=== PATIENT | male | born 1950 | race Caucasian/White ===

== ENCOUNTER 2017-02-13 06:00 | Observation (INO) | payer MEDICARE ==
[~2017-02-13] VITALS: Ht 182.9 cm; Wt 105.5 kg
[~2017-02-13 06:00] MED LIST: ALPR0.5T3 PO; ATEN25TA PO; FAMO1TAB30 PO; PRAV10TA PO; TEMA15CA PO; TERA5CAP3 PO; VITA2000 PO
[2017-02-13] MEDS ORDERED: POVIDONE IODINE 5% (ANTISEPSIS KIT) 4 APPLICATIONS EACH NARE PRN (06:30)
[2017-02-13] MEDS ORDERED: SODIUM CHLORID 0.9% 500 ML IV PRN (06:30)
[2017-02-13] MEDS ORDERED: SODIUM CHLOR 0.9% 1000 ML INJ 1,000 ML IV SCH (06:30)
[2017-02-13] MEDS ORDERED: LACTATED RINGER'S 1000 ML IV PRN (06:30)
[2017-02-13] MEDS ORDERED: METOPROLOL TARTRATE 25 MG TAB PO PRN (06:30)
[2017-02-13] MEDS ORDERED: VANCOMYCIN HCL 1000 MG ON-CALL/NS 250 ML IV SCH ×2 (06:30)
[2017-02-13] MEDS ORDERED: CHLORHEXIDINE GLUCONATE 2 % 1 PACK (2 CLOTHS) TOPICAL PRN (06:30)
[2017-02-13] MEDS ORDERED: BUPIVACAINE/EPINEPHRINE 0.5% 50 ML VIAL ONE (07:29)
[2017-02-13] MEDS ORDERED: VANCOMYCIN HCL 1000 MG VIAL ONE ×2 (07:29→09:50)
[2017-02-13] MEDS ORDERED: GELFOAM SIZE 100 ONE (07:29)
[2017-02-13] MEDS ORDERED: THROMBIN (TOPICAL) 5,000 UNIT VIAL ONE (07:29)
[2017-02-13] MEDS ORDERED: SODIUM CHLOR 0.9% 250 ML INJ 0 ML ONE (07:30)
[2017-02-13] MEDS ORDERED: ACETAMINOPHEN 1000 MG/100 ML 100 ML IV ONE (07:49)
[2017-02-13] MEDS ORDERED: PROPOFOL 500 MG/50 ML INJ 100 ML ONE (07:49)
[2017-02-13] MEDS ORDERED: DEXAMETHASONE SOD PHOS 4 MG/ML VIAL ONE (08:25)
[2017-02-13] MEDS ORDERED: ONDANSETRON HCL 4 MG/2 ML VIAL IV ONE (12:00)
[2017-02-13] MEDS ORDERED: ACETAMINOPHEN/HYDROcodone 325 MG/10 MG TAB PO PRN (12:00)
[2017-02-13] MEDS ORDERED: ROCURONIUM INJ 50 MG/5 ML SYRINGE IV PUSH ONE (12:00)
[2017-02-13] MEDS ORDERED: LABETALOL HCL 100 MG/20 ML VIAL IV ONE (12:00)
[2017-02-13] MEDS ORDERED: DEXAMETHASONE SOD PHOS 4 MG/ML VIAL IV ONE (12:00)
[2017-02-13] MEDS ORDERED: NEOSTIGMINE 5 MG/5 ML SYRINGE IV PUSH ONE (12:00)
[2017-02-13] MEDS ORDERED: ACETAMINOPHEN 325 MG TAB PO PRN (12:00)
[2017-02-13] MEDS ORDERED: NORMOSOL R INJ 2,000 ML IV ONE (12:00)
[2017-02-13] MEDS ORDERED: GLYCOPYRROLATE 1 MG/5 ML SYRINGE IV PUSH ONE (12:00)
[2017-02-13] MEDS ORDERED: ALPRAZolam 0.5 MG TAB PO PRN (12:00)
[2017-02-13] MEDS ORDERED: LIDOCAINE HCL 1% PF 5 ML SYRINGE OTHER ONE (12:00)
[2017-02-13] MEDS ORDERED: CYCLOBENZAPRINE HCL 10 MG TAB PO PRN (12:00)
[2017-02-13] MEDS ORDERED: ePHEDrine/NS 25 MG/5 ML SYRINGE IV ONE (12:00)
[2017-02-13] MEDS ORDERED: cloNIDine HCL 0.1 MG TAB PO PRN (12:00)
[2017-02-13] MEDS ORDERED: MAGNESIUM HYDROXIDE SUSP 30 ML CUP PO PRN (12:00)
[2017-02-13] MEDS ORDERED: ONDANSETRON HCL 4 MG/2 ML VIAL IV PUSH PRN (12:00)
[2017-02-13] MEDS ORDERED: TEMAZEPAM 15 MG CAP PO PRN (12:00)
[2017-02-13] MEDS ORDERED: RESP: ALBUTEROL 2.5 MG/3 ML NEB (PRN) NEB (12:00)
[2017-02-13] MEDS ORDERED: SENNOSIDES 8.6 MG TAB PO PRN (12:00)
[2017-02-13] MEDS ORDERED: PROMETHAZINE INJ 25 MG/ML VIAL IM PRN (12:00)
[2017-02-13] MEDS ORDERED: PROPOFOL 200 MG/20 ML AMP IV ONE (12:00)
[2017-02-13] MEDS ORDERED: SODIUM CHLORIDE 0.9% FLUSH 10 ML FLUSH IV FLUSH PRN (12:00)
[2017-02-13] MEDS ORDERED: METOPROLOL TARTRATE 5 MG/5 ML VIAL IV PUSH ONE (12:00)
[2017-02-13] MEDS ORDERED: LACTULOSE SYRUP 20 GM/30 ML CUP PO PRN (12:00)
[2017-02-13] MEDS ORDERED: ALUMINUM/MAGNESIUM/SIMETH 30 ML CUP PO PRN (12:00)
[2017-02-13] MEDS ORDERED: LACTATED RINGER'S 1000 ML INJ 1,000 ML IV ONE (12:00)
[2017-02-13] MEDS ORDERED: BISACODYL 10 MG SUPP RECTAL PRN (12:00)
--- NOTE | 2017-02-13 12:11 | PD.OP ---
MD Edis Shanks MD Operative Report Date of Surgery: Feb 13, 2017 Preoperative Diagnosis: Intractable neck pain with radiculopathy; severe C5-6 disc degeneration with associated disc osteophyte complex and spinal and foraminal stenosis Postoperative Diagnosis: Same Procedure: Anterior cervical C5-6 microdiscectomy with interbody fusion; anterior C5-6 cervical plate placement; C5-6 interbody cage placement; microsurgical technique Anesthesia: Gen. endotracheal by Horace momin Surgeon: Lucas Washburn M.D. Ethylbenzene Cracking Supervisor(s): Rebeka Longoria Operation and Findings: Following administration of general endotracheal anesthesia, the patient received a gram of vancomycin and Decadron 10 mg intravenously. Sequential compression devices were placed in supine position on a Kurt table and all pressure points adequately padded. The head secured in a donut and anterior cervical region then shaved and prepped with Chloraprep and sterilely draped with Ioban along with the usual sterile draping. A transverse skin incision on the left side of the neck was then made after infiltrating the skin with 0.5% Marcaine with epinephrine solution extending down through the platysma. At the anterior border of the sternocleidomastoid further dissection was undertaken developing a plane between the carotid sheath laterally and the trachea esophagus medially. The prevertebral fascia was exposed and dissected out. The medial attachments of the longus colli muscles were detached and a self- retaining retractor used for exposure. The C5-6 disc space was localized with a marking the disc space and using lateral fluoroscopy. Stopover distraction screws 14 mm length were placed one in the C5 and one in the C6 body interbody distraction and exposure. There was significant disc degeneration with disc height collapse and anterior osteophytes noted at the C5-7level and the osteophytes were resected with a Leksell and annulus incised with a 15 blade and further dissection undertaken using microtechnique with microscope magnification. Diskectomy was undertaken with pituitaries and the endplates were also decorticated with curettes and drill bit. And more posteriorly there was disk osteophyte complex compressing the thecal sac along with a significant uncovertebral joint hypertrophy with foraminal stenosis which more prominent on the left side and was decompressed along with removal of the posterior longitudinal ligament. The foramen was decompressed bilaterally using a Kerrison 's and palpation with a nerve hook, the exiting nerve roots were felt to be free. The area was then copiously irrigated. I then placed a Peek cage packed with local autograft bone at the C5-6 interspace under fluoroscopy guidance. Stopover distraction pins were removed and the holes plugged with Gelfoam for hemostasis. In order to facilitate the fusion and provide stabilization, a Precision spine cervical uni-plate was then placed with a 14 mm variable angle screw in the C5 body and a 14 mm fixed angle screw in the C6 body. The plate screw locking mechanism was then engaged. AP and lateral fluoroscopy confirmed good placement of the construct and the retractor was then removed. Muscular bleeding points were cauterized with bipolar cautery and Gelfoam was then also used for hemostasis which was removed. The platysma was then approximated using 3-0 Vicryl interrupted stitches and 3-0 Vicryl subcuticular stitch also placed in an interrupted fashion, and final skin closure was with Mastisol and Steri- Strips. Sterile dressing was then applied. The patient was then extubated and taken to the recovery room. There are no intraoperative complications and all sponge and needle counts were correct at the end of procedure. Estimated blood loss was about 50 cc. The patient did undergo intraoperative neurologic monitoring which remained stable throughout the surgery. Lucas Washburn MD Feb 13, 2017 12:11
[2017-02-13] MEDS ORDERED: hydrALAZINE HCL 20 MG/ML VIAL ONE (12:15)
[2017-02-13] MEDS ORDERED: *morphine SULFATE 4 MG/ML PERIprocedure ONLY ONE (12:26)
[2017-02-13] MEDS ORDERED: MORPHINE SULFATE 2 MG/ML INJ IV PUSH PRN (13:15)
--- NOTE | 2017-02-13 13:25 | RADRPT ---
EXAM DATE/TIME: 02/13/2017 08:46 [facility] COMPARISON: No previous studies available for comparison. INDICATIONS : Herniated disk, fusion. MEDICAL HISTORY : None. SURGICAL HISTORY : None. ENCOUNTER: Initial ACUITY: 1 day PAIN SCORE: Non-responsive. LOCATION: Cervical spine FINDINGS: AP and lateral views of the cervical spine were obtained and demonstrate the patient status post ante rior fusion at the C5-6 level with anterior screw-plate fixation device. Metallic markers are noted i n the interspace. There is poor bony detail on the lateral views. CONCLUSION: Status post anterior fusion. Simon Chvaira MD on February 13, 2017 at 13:13 Board Certified Radiologist. This report was verified electronically.
[2017-02-13] MEDS: NS + KCL 20 MEQ INJ 1,000 ML IV SCH (13:29)
[2017-02-13 14:10] VITALS: PULSE 78
[2017-02-13 14:35] VITALS: BP 152/86; PULSE 72; RESP 18; TEMP 97.6; O2SAT 93
[2017-02-13] MEDS: ACETAMINOPHEN/HYDROcodone 325 MG/10 MG TAB PO PRN ×2 (15:29→20:27)
[2017-02-13] MEDS: MENTHOL LOZENGE BUCCAL PRN ×2 (15:29→20:27)
[2017-02-13] MEDS: DEXAMETHASONE SOD PHOS 4 MG/ML VIAL IV PUSH SCH ×2 (15:30→22:21)
[2017-02-13 16:32] VITALS: BP 176/99; PULSE 85; RESP 18; TEMP 97.5; O2SAT 94
[2017-02-13] MEDS: ATENOLOL 25 MG TAB PO SCH (20:25)
[2017-02-13] MEDS: TERAZOSIN HCL 5 MG CAP PO SCH (20:26)
[2017-02-13] MEDS: DOCUSATE SODIUM 50 MG/SENNA 8.6 MG TAB PO SCH (20:26)
[2017-02-13] MEDS: FAMOTIDINE 20 MG TAB PO SCH (20:26)
[2017-02-13 20:30] VITALS: BP 175/114; PULSE 90; RESP 18; TEMP 97.6; O2SAT 94
[2017-02-13 21:17] VITALS: O2SAT 94
[2017-02-13 22:08] VITALS: BP 167/91; PULSE 92
[2017-02-13] MEDS: SODIUM CHLORIDE 0.9% FLUSH 10 ML FLUSH IV FLUSH SCH (22:34)
[2017-02-14] VITALS (7 sets, daily range): BP systolic 154–180; BP diastolic 87–99; PULSE 62–94; RESP 18–19; TEMP 97.6–98.5; O2SAT 94–95
[2017-02-14] MEDS: ACETAMINOPHEN/HYDROcodone 325 MG/10 MG TAB PO PRN ×2 (01:24→05:30)
[2017-02-14] MEDS: NS + KCL 20 MEQ INJ 1,000 ML IV SCH ×2 (01:25→09:00)
[2017-02-14] MEDS: DEXAMETHASONE SOD PHOS 4 MG/ML VIAL IV PUSH SCH (03:35)
[2017-02-14] MEDS: MENTHOL LOZENGE BUCCAL PRN (05:30)
[2017-02-14] MEDS ORDERED: PRAVASTATIN SOD 10 MG TAB PO SCH (09:00)
[2017-02-14] MEDS ORDERED: CHOLECALCIFEROL (VIT D3) 1000 UNIT TAB PO SCH (09:00)
[2017-02-14] MEDS: SODIUM CHLORIDE 0.9% FLUSH 10 ML FLUSH IV FLUSH SCH (09:00)
[2017-02-14] MEDS ORDERED: PNEUMOCOCCAL POLYVALENT INJ 25 MCG/0.5 ML SYR IM ONE (10:00)
[2017-02-14] MEDS ORDERED: INFLUENZA VIRUS VACCINE (QUADRIVALENT) 0.5 ML SYR IM ONE (10:00)
[2017-02-14] MEDS: TERAZOSIN HCL 5 MG CAP PO SCH (10:14)
[2017-02-14] MEDS: ATENOLOL 25 MG TAB PO SCH (10:15)
[2017-02-14] MEDS: DOCUSATE SODIUM 50 MG/SENNA 8.6 MG TAB PO SCH (10:17)
[2017-02-14] MEDS: FAMOTIDINE 20 MG TAB PO SCH (10:17)
--- NOTE | 2017-02-14 10:22 | HHI.NSPN ---
History Chief Complaint: Mild incisional discomfort. Pt anxious personality. Interval History 02/14/17: Pt states he is doing well. He underwent a C5/C6 ACF on 02/13/17. No radiculopathy in UEs. Mild incisional discomfort. Mild throat discomfort. Pt states he is getting oob and ambulating to bathroom on his own. Review of Systems General: Negative for: fever, chills, insomnia Respiratory: Negative for: shortness of breath, cough, sputum Cardiovascular: Negative for: chest pain Gastrointestinal: Negative for: nausea, vomitting, diarrhea, constipation Exam Results Vital Signs Date Time Temp Pulse Resp B/P (MAP) Pulse Ox O2 Delivery O2 Flow Rate FiO2 02/14/17 08:00 97.7 80 19 173/87 (115) 95 02/13/17 21:17 21 02/13/17 14:00 Nasal Cannula 2 Intake and Output 02/14/17 02/14/17 02/15/17 08:00 16:00 00:00 Intake Total 240 ml Output Total 1100 ml 800 ml Balance -860 ml -800 ml Physical Examination General: Pt resting comfortably in bed. He has an anxious personality. Resp: CTA bilaterally. Heart: NSR no murmurs Abd: Soft positive bs Skin: Incision clean and dry. New bandage placed. Muscle: Moves all 4 extremities with 5/5 strength. Ambulating independently to bathroom. Neuro: Pt awake and alert. Follows commands well. Speech clear and appropriate. Pupils equal. Lab, Micro, Other Results Last Impressions Cervical Spine X-Ray 02/13/17 0000 Signed Impressions: Service Date/Time: Monday, February 13, 2017 08:46 - CONCLUSION: Status post anterior fusion. Simon Chavira MD 02/14/17 02/14/17 02/15/17 15:00 23:00 07:00 Output Total 800 ml Balance -800 ml Output Urine Total 800 ml Medical Decision Making Impression and Plan A: 66 y/o M s/p C5/C6 anterior cervical fusion. Pt doing well ambulating on his own to bathroom. He is requesting discharge home. P: Discharge pt home. Discussed incision care. Pt will keep dry in shower with waterproof bandage. Discussed restrictions of no pushing, pulling, lifting, more than 5 pounds. Pt can ambulate to his comfort. Massimo Joiner Feb 14, 2017 10:22 am
[2017-02-14] MEDS ORDERED: CYCL10TA PO (10:34)
[2017-02-28] MEDS ORDERED: CYCL10TA PO (16:15)
== END 2017-02-14 12:30 | disposition home or self-care (01) ==
LOC: HSDC 06:00 → HSDI 12:03 → N05A 14:10
PROVIDERS: ADMIT Neurological Surgery; ATTEND Neurological Surgery
DX: M48.02 Spinal stenosis, cervical region (principal); M50.122 Cervical disc disorder at C5-C6 level with radiculopathy; M25.78 Osteophyte, vertebrae; I10 Essential (primary) hypertension; E78.5 Hyperlipidemia, unspecified; G47.30 Sleep apnea, unspecified
CPT/HCPCS: 00600; 22551; 22853; 72040; 76000; 96361; 96365; 96366; 96375; 96376; C1713; G0378; J0131; J0360; J0690; J1100; J2270; J2405; J2710; J3370; J3480; J7120; L0150; J7050